=== PATIENT | female | born 1990 | race African-American/Black ===

== ENCOUNTER 2016-06-27 20:57 | Emergency (ER) | payer OTHER ==
[2016-06-27 21:24] VITALS: BMI 47.7
[2016-06-27 21:50] VITALS: BP 158/91; PULSE 98; TEMP 98.5
[2016-06-27] MEDS ORDERED: IBUPROFEN 800 MG TAB PO ONE (21:55)
--- NOTE | 2016-06-27 21:58 | EDPRACDOC ---
- General Information Chief Complaint: Back Injury Stated Complaint: BACK PAIN Time Seen by Provider: 06/27/16 21:50 Information Source: Patient Home Medications: Home Medications Gabapentin [Neurontin] 300 mg PO TID 08/23/15 Cyclobenzaprine HCl [Flexeril] 5 mg PO TID #30 tablet 04/10/16 Metronidazole [Flagyl] 500 mg PO TID #30 tab 04/10/16 Oxycodone HCl/Acetaminophen [Percocet 5-325 mg Tablet] 1 each PO Q4 #20 tablet 04/10/16 Cyclobenzaprine HCl [Flexeril] 10 mg PO TID PRN #15 tablet 06/27/16 Oxycodone HCl/Acetaminophen [Percocet 5-325 mg Tablet] 1 tab PO Q6H PRN #15 tab 06/27/16 Allergies/Adverse Reactions: Allergies Allergy/AdvReac Type Severity Reaction Status Date / Time latex Allergy Intermediate Rash-Genera Verified 06/27/16 21:38 lized - History of Present Illness Onset: Today HPI: 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 C/o lower back pain. Pt states she lost control of bladder while she was in her car. Denies abd pain, n/v, leg weakness or numbness. Pain Location: Reports: Lumbar Pain Radiates To: Reports: None Pain Caused By: Reports: Lifting, Spontaneous Circumstances: Reports: Work-related Relevant History: Denies: Abdominal aneurysm, Arthiritis, Cancer, Chronic back pain, Gallbladder disease, Pancreatitis, Pyelonephritis, Urolithiasis, UTI, None , MT, O Currently ?: No Pain Severity: Reports: Moderate Pain Quality: Reports: Aching Worsened By: Reports: Movement, Walking Associated Signs and Symptoms: Reports: None ED Past Medical History - History Reviewed Yes Nurses notes reviewed and agree except as marked - Patient Medical History Cardiac History: Reports: Hypertension Psychological History: Denies: Depression Additional Past Medical History: PCOS - Social Medical History Smoking Status: Heavy tobacco smoker (5 or more cigarettes/day or daily pipe/ cigar) ETOH: None Substance Abuse: None EDM Review of Systems - Review of Systems Constitutional: No Symptoms Reported. negative: Fever, Chills, Weakness, Fatigue, Loss of Appetite Respiratory: No Symptoms Reported. negative: Cough, Brassy Cough, Barky Cough, Shortness of Breath, Wheezing, Hemoptysis Cardiovascular: No Symptoms Reported. negative: Chest Pain, Palpitations, Syncope, Edema, Orthopnea, PND, Skin Mottling, Cyanosis Gastrointestinal: No Symptoms Reported. negative: Pain, Constipation, Nausea, Vomiting, Diarrhea, Melena, Formula Intolerance Genitourinary: Other (incontience). negative: No Symptoms Reported, Bleeding, Dysuria, Discharge, Frequency, Hematuria, , Testicular Pain Neurological: No Symptoms Reported. negative: Headache, Dizziness, Seizure, Numbness, Weakness, Speech Difficulty, Gait Difficulty Musculoskeletal: Back Integumentary: No Symptoms Reported. negative: Itching, Rash, Bruising, Wound Allergic/Immunologic: No Symptoms Reported. negative: Hives, Itching Hematologic: No Symptoms Reported. negative: Lymphadenopathy, Easy Bruising, Easy Bleeding Psychiatric: No Symptoms Reported. negative: Anxiety, Depression, Hallucinations, Insomnia, Suicidal - Physical Exam Constitutional: Alert Oriented to: Time, Person, Place Last recorded Vital Signs: Last Vital Signs Temp 98.5 F 06/27/16 21:50 Pulse 98 06/27/16 21:50 Resp 20 06/27/16 21:50 BP 158/91 06/27/16 21:50 Pulse Ox 97 06/27/16 21:50 Oxygen Pulse Oxygen Saturation 97 O2 Device Room Air Oxygen Flow Rate Fraction of Inspired Oxygen ( FIO2) - HEENT Head: Normal ( normocephalic) Neck: Normal (FROM, trachea at midline) - Respiratory/Cardiovascular Respiratory: Normal - CTA (BBS clear to auscultation without adventitious sounds ) Cardiovascular: Normal (RRR without murmur, gallop or rub) - GI Auscultation: Normal (NABS) Palpation: Normal (Soft,No rebound or guarding, non distended) Tenderness: Non tender - Musculoskeletal Back: Lumbar TTP Extremities: Normal (Normal tone, Pulses 2+ No cyanosis or edema, FROM) - Integumentary Skin: Normal, Warm, Dry Lymphatics: Normal (no adenopathy) - Neurologic Memory Impaired: Normal Motor Function: Normal (Normal tone, Pulses 2+ No cyanosis or edema, FROM) Mood Description: Normal Perception: Normal ED Back Exam - Neurologic Motor Deficit: None (strength 5/5, sensation nl) Reflexes: Normal (CN II-X11 intact) - Musculoskeletal Cervical: Normal Thoracic: Normal Lumbar: Tender Midline: Tender Paraspinous: Tender Straight Leg Raise: Negative Pelvis: Normal - Differential Diagnosis DJD, Fracture, HNP, Musculoskeletal pain, Strain, Urinary tract infection - Diagnostic Imaging L-Spine Image interpreted by: Radiologist IMPRESSION: No evidence of fracture or subluxation along the lumbar spine. - Additional Information Discussed pt with edin Hensley to d/c home Decision Time to Discharge: 22:51 - Departure Disposition: Home Condition: Stable Final Diagnosis: Lumbar spine strain Qualifiers: Encounter type: initial encounter Qualified Code(s): S39.012A - Strain of muscle, fascia and tendon of lower back, initial encounter Instructions: Core Strengthening Exercises (GEN), Back Pain, Thoracic (Lumbar) Strain Education/Counseling Given To: Patient Education/Counseling Given Regarding: Diagnosis, Treatment, Follow Up Referrals: None,No Provider [Primary Care Provider] - One Week Mendez Mendez MD [Staff Physician] - One Week Prescriptions: Cyclobenzaprine HCl [Flexeril] 10 mg PO TID PRN #15 tablet PRN Reason: Pain Oxycodone HCl/Acetaminophen [Percocet 5-325 mg Tablet] 1 tab PO Q6H PRN #15 tab PRN Reason: Pain
--- NOTE | 2016-06-27 22:22 | DIRPT ---
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 Constant throbbing lower back pain. Initial encounter. EXAM: LUMBAR SPINE - COMPLETE 4+ VIEW COMPARISON: CT of the abdomen and pelvis performed 04/10/2016 FINDINGS: There is no evidence of fracture or subluxation. Vertebral bodies demonstrate normal height and alignment. Intervertebral disc spaces are preserved. The visualized neural foramina are grossly unremarkable in appearance. The visualized bowel gas pattern is unremarkable in appearance; air and stool are noted within the colon. The sacroiliac joints are within normal limits. IMPRESSION: No evidence of fracture or subluxation along the lumbar spine. Electronically Signed By: Jose Tejada M.D. On: 06/27/2016 22:19
[2016-06-27 22:38] LABS: LEUKOCYTES/URINE NEG (NEGATIVE); NITRITE/URINE NEG (NEGATIVE); URINE OCCULT BLOOD 1+ (NEG/TRACE)
[2016-06-27 22:46] LABS: RBC/URINE 0-2 (0-5); WBC/URINE 0-2 (0-5)
== END 2016-06-27 22:57 | disposition home or self-care (01) ==
LOC: ED 20:57 → EDMC 22:57
DX: S39.012A Strain of muscle, fascia and tendon of lower back, initial encounter (principal); X50.0XXA Overexertion from strenuous movement or load, initial encounter; Y92.129 Unspecified place in nursing home as the place of occurrence of the external cause; Y99.0 Civilian activity done for income or pay
CPT/HCPCS: 72110; 81001; 87086; 99283; J3490